=== PATIENT | male | born 1990 | race Two or more races ===

== ENCOUNTER 2016-05-25 23:55 | Emergency (ER) | payer OTHER ==
[~2016-05-25] VITALS: Ht 180.3 cm; Wt 74.8 kg
[2016-05-25 23:59] VITALS: BP 147/97
[2016-05-26] MEDS ORDERED: NKM (00:15)
[2016-05-26] MEDS ORDERED: IBUPROFEN600 MG ORAL (00:20)
[2016-05-26 00:27] VITALS: BP 134/81
--- NOTE | 2016-05-26 04:25 | Emergency Room Report ---
History of Present Illness General Chief Complaint: Pain Source: Patient Present Illness HPI 25-year-old male presents to ED for evaluation. Patient states that he accidentally walked into a glass door today at work. Patient works in a hotel nearby. Patient denies LOC. Denies any other injuries. Notes minimal pain, 3/ 10, aching. Nonradiating. No aggravating relieving factors. Denies any other associated symptoms Allergies: Coded Allergies: No Known Allergies (Unverified , 05/26/16) Patient History Past Medical History: none Past Surgical History: none Pertinent Family History: none Social History: Denies: alcohol use, drug use, smoking Immunizations: UTD Reviewed Nursing Documentation: PMH: Agreed, PSxH: Agreed Nursing Documentation-PMH Past Medical History: No Stated History Review of Systems All Other Systems: negative except mentioned in HPI Physical Exam Vital Signs Date Time Temp Pulse Resp B/P Pulse Ox O2 Delivery O2 Flow Rate FiO2 05/25/16 23:59 98.4 76 20 147/97 99 Room Air Sp02 EP Interpretation: reviewed, normal General Appearance: no apparent distress, alert, GCS 15, non-toxic Head: normocephalic Eyes: bilateral eye PERRL, bilateral eye normal inspection ENT: hearing grossly normal, normal pharynx, no angioedema, normal voice, other - bruising/swelling to nose. non-mobile. no septal hematoma Neck: full range of motion, supple/symm/no masses Respiratory: normal inspection Cardiovascular #1: normal inspection Gastrointestinal: normal inspection Rectal: deferred Genitourinary: no CVA tenderness Musculoskeletal: normal inspection Neurologic: alert, oriented x3, responsive, motor strength/tone normal, sensory intact, speech normal Psychiatric: normal inspection Skin: normal inspection Lymphatic: normal inspection Medical Decision Making Diagnostic Impression: Primary Impression: Nasal contusion ER Course 25-year-old male presents to ED with bruising and swelling to nose after bumping into glass door Differential-fracture, contusion, septal hematoma After initial history, physical exam reveals a young male in no acute distress. There is some bruising and swelling to the nasal bridge. I am unable to note any crepitus to the nasal bones. There is no evidence of septal hematoma or nasal bleeding. I suspicion for fracture is low however x-rays would be needed. I explained to the patient x-rays would not change the management at this time as there is no surgical indication. I did offer patient x-rays if he requested. Patient declined x-ray stating that he understands that there is no change in management. I offered patient pain medication he declined. I offered patient ice pack which he accepted Diagnoses-nasal contusion Stable and discharged to home with prescription for Motrin, apply ice. Followup with PMD. Return to ED if symptoms recur or worsen Last Vital Signs Date Time Temp Pulse Resp B/P Pulse Ox O2 Delivery O2 Flow Rate FiO2 05/26/16 00:27 98.4 77 20 134/81 100 Room Air Status: improved Disposition: HOME, SELF-CARE Condition: Stable Scripts Ibuprofen* (MOTRIN*) 600 Mg Tablet 600 MG ORAL Q8H Y for For Pain, #30 TAB 0 Refills Prov: REGULO SANTIZO M.D. 05/26/16 Referrals: NOT CHOSEN [facility]/,REFERRING (PCP) Departure Forms: Return to Work Return to Work Date: May 27, 2016 Work Restrictions: None Patient Instructions: Nasal Fracture, [id number] REGULO SANTIZO M.D. May 26, 2016 04:25
== END 2016-05-26 | disposition home or self-care (01) ==
LOC: EMR 05-26 00:15
DX: S00.33XA Contusion of nose, initial encounter (principal); W22.09XA Striking against other stationary object, initial encounter; Y92.9 Unspecified place or not applicable; Y99.0 Civilian activity done for income or pay
CPT/HCPCS: 99282